=== PATIENT | male | born 1960 | race Caucasian/White ===

== ENCOUNTER 2016-09-22 07:19 | Emergency (ER) | payer BC | END 2016-09-22 11:59 | disposition home or self-care (01) | LOC: ER 07:19 | DX: J20.9 Acute bronchitis, unspecified (principal); I10 Essential (primary) hypertension; E11.9 Type 2 diabetes mellitus without complications; Z79.84 Long term (current) use of oral hypoglycemic drugs; Z79.899 Other long term (current) drug therapy; F17.290 Nicotine dependence, other tobacco product, uncomplicated | CPT/HCPCS: 36415; 71010; 80048; 84484; 85025 ==